=== PATIENT | female | born 1995 | race African-American/Black ===

== ENCOUNTER 2017-01-31 17:17 | Emergency (ER) | payer OTHER ==
[~2017-01-31] VITALS: Ht 165.1 cm; Wt 108.9 kg
[2017-01-31 17:51] VITALS: BP 124/67
[2017-01-31] MEDS ORDERED: IBUPROFEN600 MG ORAL (18:09)
[2017-01-31 18:41] VITALS: BP 123/76
--- NOTE | 2017-01-31 20:51 | Emergency Room Report ---
History of Present Illness General Chief Complaint: Chest Pain Source: Patient Present Illness HPI Patient is a 21-year-old female who presented after increased right-sided chest pain. Patient gradual onset of symptoms the past 8 days. Patient had reported increased pain with movement of her right upper extremity. She denied any chest pain with deep breaths or exertion. She reports having no recent fever or cough. She denies any leg pain or swelling. She denies any vomiting or abdominal pain. Allergies: Coded Allergies: No Known Allergies (Unverified , 01/31/17) Patient History Past Medical History: see triage record Last Menstrual Period: 01/14/17 Reviewed Nursing Documentation: PMH: Agreed, PSxH: Agreed Nursing Documentation-PMH Past Medical History: No Stated History Review of Systems All Other Systems: negative except mentioned in HPI Physical Exam Vital Signs Date Time Temp Pulse Resp B/P Pulse Ox O2 Delivery O2 Flow Rate FiO2 01/31/17 17:24 98.6 71 15 123/79 99 Room Air Sp02 EP Interpretation: reviewed, normal General Appearance: normal inspection, well appearing, no apparent distress, alert, GCS 15 Head: atraumatic ENT: normal ENT inspection, hearing grossly normal, normal voice Neck: normal inspection, full range of motion, supple, no bony tend Respiratory: normal inspection, lungs clear, normal breath sounds, no respiratory distress, no retraction, no wheezing Cardiovascular #1: regular rate, rhythm, no edema Gastrointestinal: normal inspection, normal bowel sounds, non tender, soft, no guarding, no hernia Genitourinary: no CVA tenderness Musculoskeletal: normal inspection, back normal, normal range of motion, tender - right shoulder, anterior chest wall Neurologic: normal inspection, alert, responsive, speech normal Psychiatric: normal inspection, judgement/insight normal, mood/affect normal Skin: normal inspection, normal color, no rash Medical Decision Making Diagnostic Impression: Primary Impression: Chest wall pain ER Course This presented for chest pain. Differential diagnosis included but was not limited to acute coronary syndrome, pulmonary embolism, pneumonia, aortic dissection, shingles, pneumothorax, aortic dissection, esophageal rupture, pericarditis. The patient's exam is consistent with chest wall pain. The patient was given ibuprofen prescription. She's not appear to require any further workup at this time. She is advised followup with her primary care physician for examination in the next one to 2 days. Last Vital Signs Date Time Temp Pulse Resp B/P Pulse Ox O2 Delivery O2 Flow Rate FiO2 01/31/17 18:41 60 19 123/76 99 Room Air 01/31/17 17:24 98.6 Status: improved Disposition: HOME, SELF-CARE Condition: Stable Scripts Ibuprofen* (MOTRIN*) 600 Mg Tablet 600 MG ORAL Q8H Y for For Pain, #30 TAB 0 Refills Prov: Francis Ramsey 01/31/17 Referrals: Gloria HASTINGS,REFERRING (PCP) Patient Instructions: Nonspecific Chest Pain Francis Ramsey Jan 31, 2017 20:51
== END 2017-01-31 18:43 | disposition home or self-care (01) ==
LOC: EMR 17:51
DX: R07.89 Other chest pain (principal)
CPT/HCPCS: 81025; 99283